=== PATIENT | female | born 1995 | race Caucasian/White ===

== ENCOUNTER 2024-06-27 15:07 | Emergency (ER) | payer MEDICAID ==
[~2024-06-27] VITALS: Ht 157.5 cm; Wt 62.6 kg
[2024-06-27 15:12] VITALS: BP 149/69; PULSE 83; RESP 18; TEMP 98.8; O2SAT 100
[2024-06-27 16:21] LABS: BASOPHILS % (AUTO) 0.4 % (0.0-2.0); EOSINOPHILS # (AUTO) 0.1 K/uL (0-0.4); EOSINOPHILS % (AUTO) 1.2 % (0.0-4.0); HEMATOCRIT 38.3 % (36-48); HEMOGLOBIN 13.2 g/dL (12.0-16.0); LYMPHOCYTES # (AUTO) 2.1 K/uL (2.5-16.5); LYMPHOCYTES % (AUTO) 23.3 % (20.5-51.1); MEAN CORPUSCULAR HEMOGLOBIN 30 pg (27-31); MEAN CORPUSCULAR HGB CONC 34 g/dL (33-37); MEAN CORPUSCULAR VOLUME 88.1 fL (80-94); MONOCYTES # (AUTO) 0.6 K/uL (0.8-1.0); MONOCYTES % (AUTO) 6.6 % (1.7-9.3); NEUTROPHILS # (AUTO) 6.3 K/uL (1.8-7.7); NEUTROPHILS % (AUTO) 68.5 % (42.2-75.2); PLATELET COUNT (AUTO) 233 K/uL (140-450); RED BLOOD CELL COUNT(AUTO) 4.35 MIL/uL (4.20-5.40); RED CELL DISTRIBUTION WIDTH 12.4 % (11.6-13.7); WHITE BLOOD COUNT (AUTO) 9.2 K/uL (4.8-10.8)
[2024-06-27 16:29] LABS: ANION GAP 10.8 (8-16); CARBON DIOXIDE 28.6 mmol/L (21-32); CREATININE 0.9 mg/dL (0.6-1.3); POTASSIUM 4.4 mmol/L (3.5-5.1)
[2024-06-27 17:00] VITALS: O2SAT 100
[2024-06-27] MEDS ORDERED: KETOROLAC 30 MG/ML VIAL ONE (17:11)
[2024-06-27] MEDS ORDERED: CYCLOBENZAPRINE 10 MG TAB ONE (17:11)
[2024-06-27] MEDS: CYCLOBENZAPRINE 10 MG TAB PO ONE (17:14)
[2024-06-27] MEDS: KETOROLAC 30 MG/ML VIAL IM ONE (17:15)
[2024-06-27] MEDS ORDERED: LIDO73LI TP (17:16)
[2024-06-27] MEDS ORDERED: MOT200 PO (17:16)
[2024-06-27] MEDS ORDERED: CYCL10TA33 PO (17:16)
[2024-06-27] MEDS ORDERED: LIDO4CRE22 TP (17:52)
== END 2024-06-27 18:06 | disposition home or self-care (01) ==
LOC: MED 15:07
DX: R07.9 Chest pain, unspecified (principal); Z79.899 Other long term (current) drug therapy
CPT/HCPCS: 36415; 71045; 80048; 84484; 84703; 85025; 93005; 96372; 99285; J1885